=== PATIENT | female | born 1935 | race Caucasian/White ===

== ENCOUNTER 2016-08-09 10:15 | Outpatient (RCR) | payer MEDICARE, OTHER ==
[~2016-08-09 10:15] MED LIST: CRESTOR 10MG10 MG PO; DRY EYES 15 ML15 ML OP; FOSAMAX70 MG PO; OMEGA 31000 MG PO; VITAMIN D1000 IU PO
== END 2016-09-09 | disposition home or self-care (01) ==
LOC: WSPT
DX: M54.2 Cervicalgia (principal); M25.511 Pain in right shoulder; M54.41 Lumbago with sciatica, right side
CPT/HCPCS: G8984-GP; G8985-GP; G8986-GP

== ENCOUNTER 2016-12-10 10:30 | Outpatient (RCR) | payer MEDICARE, OTHER | END 2016-12-13 | disposition still patient (30) | LOC: WSPT | DX: M25.511 Pain in right shoulder (principal); M54.2 Cervicalgia; M54.16 Radiculopathy, lumbar region | CPT/HCPCS: G8985-GP; G8986-GP ==

== ENCOUNTER 2017-01-06 11:00 | Observation (INO) | payer MEDICARE, OTHER ==
[~2017-01-06] VITALS: Ht 149.9 cm; Wt 50.3 kg
[2017-01-06] MEDS ORDERED: TENORMIN 2525 MG/TAB PO (11:20)
[2017-01-06] MEDS ORDERED: ATIVAN 0.50.5 MG/TAB PO (11:21)
[2017-01-06] MEDS ORDERED: PRILOSEC10 MG PO (11:37)
[2017-01-06 12:18] LABS: BASO # 0.1 (0.0-0.2); BASO % 1.3 % (0.0-2.0); EOS # 0.8 (0.0-0.7); EOS % 9.7 % (0-4.0); GRAN # 3.9 (1.4-6.5); GRAN % 49.6 % (42.2-75.2); LYMPH # 2.5 (1.2-3.4); LYMPH % 31.8 % (20.0-51.0); MEAN CELL VOLUME 92 fl (80.0-100.0); MEAN CORPUSCULAR HGB CONC 34 g/dl (33.0-37.0); MEAN PLATELET VOLUME 9.6 fl (7.4-10.4); MONO # 0.6 (0.1-0.6); PLATELET COUNT 250 K/mm3 (130-400); REDCELL DISTRIBUTION WIDTH-CV 12.6 % (11.5-14.5); WHITE BLOOD COUNT 7.9 K/mm3 (4.8-10.8)
[2017-01-06 12:19] LABS: HEMATOCRIT 34.2 % (37.0-47.0); HEMOGLOBIN 11.5 g/dl (12.5-16.0); MEAN CORPUSCULAR HEMOGLOBIN 31 pg (27.0-31.0)
[2017-01-06 12:25] LABS: ADJUSTED CALCIUM 9.3 mg/dL (8.4-10.2); ALANINE AMINOTRANSFERASE 35 U/L (9-52); ALBUMIN 4.2 gm/dL (3.5-5.0); ALKALINE PHOSPHATASE 47 U/L (50-136); ANION GAP 10 mmol/L (7-16); BILIRUBIN,TOTAL 0.7 mg/dL (0.0-1.0); BLOOD UREA NITROGEN 23 mg/dL (7-17); CALCIUM 9.5 mg/dL (8.4-10.2); CARBON DIOXIDE 25 mmol/L (22-30); CHLORIDE 98 mmol/L (98-107); GLUCOSE 91 mg/dL (74-106); MAGNESIUM 1.9 mg/dL (1.6-2.3); PHOSPHOROUS 3.9 mg/dL (2.5-4.5); POTASSIUM 4.3 mmol/L (3.4-5.0); SODIUM 133 mmol/L (137-145); TOTAL PROTEIN 7.2 gm/dL (6.4-8.2)
[2017-01-06 12:37] LABS: TROPONIN-I < 0.012 ng/mL (0.000-0.034)
[2017-01-06 12:38] LABS: PH 5 (5-8); SQUAMOUS EPITHELIAL None Seen /hpf; URINE APPEARANCE Clear; URINE BACTERIA None Seen /hpf; URINE BILIRUBIN Negative (NEGATIVE); URINE BLOOD Negative (NEGATIVE); URINE COLOR Straw; URINE GLUCOSE Negative (NEGATIVE); URINE KETONE Negative (NEGATIVE); URINE RBC 0-2 /hpf; URINE UROBILINOGEN Negative (NEGATIVE); URINE WBC 0-2 /hpf
[2017-01-06] MEDS ORDERED: RESTASIS 60VL OU (14:26)
[2017-01-06] MEDS ORDERED: LOTEMAX 5 ML 5 M5 ML OP (14:27)
[2017-01-06 16:44] VITALS: BP 118/45; PULSE 55; TEMP 97.9
[2017-01-06 16:47] VITALS: BP 118/45; PULSE 56; TEMP 97.9
[2017-01-06 20:26] VITALS: BP 117/43; PULSE 60; TEMP 98.3
[2017-01-07 00:03] VITALS: BP 110/39; PULSE 57; TEMP 99.1
[2017-01-07 04:19] VITALS: BP 118/45; PULSE 58; TEMP 98.5
[2017-01-07 07:22] LABS: BASO # 0.1 (0.0-0.2); BASO % 1.4 % (0.0-2.0); EOS # 0.8 (0.0-0.7); EOS % 12.4 % (0-4.0); GRAN # 2.9 (1.4-6.5); HEMATOCRIT 34.4 % (37.0-47.0); HEMOGLOBIN 11.4 g/dl (12.5-16.0); LYMPH # 2.2 (1.2-3.4); LYMPH % 33.2 % (20.0-51.0); MEAN CELL VOLUME 92 fl (80.0-100.0); MEAN CORPUSCULAR HEMOGLOBIN 30 pg (27.0-31.0); MEAN CORPUSCULAR HGB CONC 33 g/dl (33.0-37.0); MEAN PLATELET VOLUME 9.5 fl (7.4-10.4); MONO # 0.5 (0.1-0.6); MONO % 7.7 % (1.7-9.3); PLATELET COUNT 246 K/mm3 (130-400); RED BLOOD COUNT 3.76 M/mm3 (4.10-5.30); REDCELL DISTRIBUTION WIDTH-CV 12.6 % (11.5-14.5); WHITE BLOOD COUNT 6.5 K/mm3 (4.8-10.8)
[2017-01-07 07:38] LABS: C-REACTIVE PROTEIN 0.6 mg/dL (0.0-0.9); CALCIUM 9.4 mg/dL (8.4-10.2); CREATININE, serum 1.02 mg/dL (0.52-1.25); POTASSIUM 4.2 mmol/L (3.4-5.0)
[2017-01-07 07:44] LABS: ERYTHROCYTE SEDIMENTATION RATE 11 mm/hr (0-30)
[2017-01-07 08:35] VITALS: BP 135/43; PULSE 59; TEMP 97.7
[2017-01-07] MEDS ORDERED: ASPIRIN 81M81 MG/TA2 PO (11:52)
[2017-01-07 12:00] VITALS: BP 124/57; PULSE 57; TEMP 97.1
== END 2017-01-07 15:12 | disposition home or self-care (01) ==
LOC: COL.ER 11:00 → MEDICAL 13:35
PROVIDERS: Emergency Medicine; Physician Assistant
DX: G45.9 Transient cerebral ischemic attack, unspecified (principal); R00.2 Palpitations; I10 Essential (primary) hypertension; E78.5 Hyperlipidemia, unspecified; K21.9 Gastro-esophageal reflux disease without esophagitis; E78.1 Pure hyperglyceridemia; D64.89 Other specified anemias; Z80.3 Family history of malignant neoplasm of breast
CPT/HCPCS: 99223-AI; 99239; A9585; G0378; J1650; J7050

== ENCOUNTER → 2018-04-11 | Outpatient (CLI) | payer MEDICARE, OTHER ==
[~2018-04-11] MED LIST changes: +ASPIRIN 81M81 MG/TA2 PO; +ATIVAN 0.50.5 MG/TAB PO; +LOTEMAX 5 ML 5 M5 ML OP; +PRILOSEC10 MG PO; +RESTASIS 60VL OU; +TENORMIN 2525 MG/TAB PO
== END ==
LOC: MC.RAD 13:47
DX: Z12.31 Encounter for screening mammogram for malignant neoplasm of breast (principal)

== ENCOUNTER → 2018-04-18 | Outpatient (CLI) | payer MEDICARE, OTHER | LOC: MHCPAIN 14:20 | DX: G89.29 Other chronic pain (principal); M47.817 Spondylosis without myelopathy or radiculopathy, lumbosacral region; M54.16 Radiculopathy, lumbar region; M53.3 Sacrococcygeal disorders, not elsewhere classified | CPT/HCPCS: G0463 ==

== ENCOUNTER → 2018-05-18 | Outpatient (CLI) | payer MEDICARE, OTHER | LOC: MHCPAIN 12:33 | DX: M47.817 Spondylosis without myelopathy or radiculopathy, lumbosacral region (principal); M54.16 Radiculopathy, lumbar region | CPT/HCPCS: J1040; Q9967 ==

== ENCOUNTER → 2018-06-20 | Outpatient (CLI) | payer MEDICARE, OTHER | LOC: MHCPAIN 13:00 | DX: G89.29 Other chronic pain (principal); M47.817 Spondylosis without myelopathy or radiculopathy, lumbosacral region; M54.16 Radiculopathy, lumbar region; M53.3 Sacrococcygeal disorders, not elsewhere classified | CPT/HCPCS: G0463 ==

== ENCOUNTER 2018-07-07 10:00 | Outpatient (RCR) | payer MEDICARE, OTHER | END 2018-07-28 10:04 | disposition home or self-care (01) | LOC: WSPT 10:00 | DX: M54.16 Radiculopathy, lumbar region (principal); M47.817 Spondylosis without myelopathy or radiculopathy, lumbosacral region; M53.3 Sacrococcygeal disorders, not elsewhere classified; G89.29 Other chronic pain ==